=== PATIENT | male | born 1960 | race African-American/Black ===

== ENCOUNTER 2019-08-01 13:07 | Inpatient (IN) | payer OTHER ==
[2019-08-01 14:07] VITALS: BMI 26.4
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
[2019-08-01] MEDS ORDERED: MAGNESIUM CITRATE 300 ML BOTTLE PO PRN (16:17)
[2019-08-01] MEDS ORDERED: MENTHOL/PHENOL 1 EACH UD MM PRN (16:17)
[2019-08-01] MEDS ORDERED: guaiFENesin 200 MG/10 ML 10 ML UNIT-DOSE CUPS PO PRN (16:17)
[2019-08-01] MEDS ORDERED: ACETAMINOPHEN 325 MG TABLET (FP) PO PRN (16:17)
[2019-08-01] MEDS ORDERED: MAGNESIUM HYDROX 2400MG/30ML ORAL SUSPENSION 30 ML CUP PO PRN (16:17)
[2019-08-01] MEDS ORDERED: LOPERAMIDE HCL 2 MG CAPSULE PO PRN (16:17)
[2019-08-01] MEDS ORDERED: P-EPHED 60MG/TRIPROLIDI 2.5MG TABLET PO PRN (16:17)
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
[2019-08-01] MEDS ORDERED: PNEUMOC 13-VAL CONJ-DIP CRM/PF 0.5 ML DISP.SYRIN IM ONE (16:24)
[2019-08-01] MEDS: metFORMIN HCL 500 MG TABLET (FP) PO SCH (18:54)
[2019-08-01] MEDS: MELATONIN 5 MG TABLETS PO PRN (21:09)
[2019-08-01] MEDS: THIAMINE HCL 100 MG TABLET (FP) PO SCH (21:09)
[2019-08-02] MEDS: metFORMIN HCL 500 MG TABLET (FP) PO SCH ×2 (06:48→16:35)
[2019-08-02] MEDS: PRENATAL VITAMINS W/ FOLIC ACID TABLET (FP) PO SCH (09:45)
[2019-08-02 10:04] LABS: EPI CELLS 0.9 /HPF (0-5/HPF); HYALINE CASTS 2 /lpf (0-8); URINE APPEARANCE CLEAR; URINE BACTERIA 0.8 /hpf (NEGATIVE); URINE BILIRUBIN NEGATIVE (NEGATIVE); URINE COLOR YELLOW; URINE GLUCOSE (UA) NEGATIVE (NEGATIVE); URINE KETONE NEGATIVE (NEGATIVE); URINE LEUK ESTERASE 1+ (NEGATIVE); URINE NITRITE NEGATIVE (NEGATIVE); URINE PROTEIN NEGATIVE (NEGATIVE); URINE RBC 1 /hpf (0-4); URINE UROBILINOGEN 0.2 mg/dL (0.2-1.0); URINE WBC 4 /hpf (0-5)
--- NOTE | 2019-08-02 10:26 | PN ---
"[facility] COWS - Scale Resting Pulse: 0= [place] 80 or Below Sweatin=Flushed/Facial Moisture Restless Observation: 0= Sits Still Pupil Size: 0= Normal to Room Light Bone or Joint Aches: 2= Severe Diffuse Aches Runny Nose/ Eye Tearin= Runny Nose/Eyes GI Upset > 30mins: 2= Nausea/Diarrhea Tremor Observation of Outstretched Hands: 2= Slight Tremor Visible Yawning Observation: 0= None Anxiety or Irritability: 1=Feels Anxious/Irritable Goose Flesh Skin: 0=Smooth Skin COWS Score: 11 [facility] Progress Note (SOAP) Subjective: Search Terms: Meggan Prather, 1960 Search Date: 08/02/2019 10:24:12 AM States Searched: [place], [place], [place], [place], [place] This report was requested by: Isa Ellsworth | Reference #: [id number] Patient is requesting suboxone treatment. States he has taken it on the street, but has never taken it as MAT. OIM ARCHITECT confirms that. COWS score was 11. Patient was urine tested by his armed custom protection officer and was positive for opiates although he had take suboxone before his parole appointment. His armed custom protection officer offered him inpatient treatment. Patient reports no ill effects from suboxone. Patient reports a history of heroin use. Objective: P/E General: no apparent distress HEENTM:moinst mucus membranes, MARTHA Neck: supple Lungs: clear Heart; S1 S2 Abd: +BS Neuro: CN 2-12 intact, MSK: full ROM, steady gait 08/02/19 10:33 Vital Signs Period Temp Pulse Resp BP Sys/Manley Pulse Ox Last 24 Hr 97.3 F-97.9 F 69-86 18-18 117-139/63-81 08/02/19 10:38 08/03/19 08:30 URINE DRUG SCREEN RESULTS Drug Screen Negative No Urine Drug Screen Results MAGEN-Cocaine,BUP-Suboxone Assessment: Reported Withdrawal from heroin; requesting suboxone MAT 08/02/19 10:28 08/03/19 08:31 Plan: Start Suboxone MAT at 2mg daily"
[2019-08-02] MEDS: BUPRENORPHINE/NALOXONE 2 MG/0.5 MG FILM PACKET SL SCH (11:00)
[2019-08-02] MEDS ORDERED: FLU VACCINE QUAD 60 MCG/0.5 ML (MDV 19-20) IM ONE (12:00)
[2019-08-02] MEDS ORDERED: PNEUMOCOCCAL 23 VACCINE 0.5 ML VIAL IM ONE (12:00)
[2019-08-02 12:14] LABS: HEMATOCRIT 44.4 % (35.4-49); HEMOGLOBIN 14.8 GM/dL (11.7-16.9); MCH 30.7 pg (25.7-33.7); MCHC 33.3 g/dl (32.0-35.9); MEAN CELL VOLUME 92.1 fl (80-96); MEAN PLT VOLUME 9.5 fl (7.5-11.1); PLATELET COUNT 155 K/MM3 (134-434); RBC 4.82 M/mm3 (4.00-5.60); RDW 13.3 % (11.9-15.9); WHITE BLOOD COUNT 6.3 K/mm3 (4.0-10.0)
[2019-08-02 12:38] LABS: ALBUMIN 3.5 g/dl (3.4-5.0); BILIRUBIN,TOTAL 0.4 mg/dL (0.2-1); CREATININE 0.9 mg/dL (0.55-1.3); TOT PROT 6.7 g/dl (6.4-8.2)
[2019-08-02] MEDS: INSULIN SLIDING SCALE (NOVOLOG) 1 VIAL SQ SCH (16:36)
[2019-08-02] MEDS: THIAMINE HCL 100 MG TABLET (FP) PO SCH (21:28)
[2019-08-02] MEDS: MELATONIN 5 MG TABLETS PO PRN (21:28)
[2019-08-02] MEDS: hydrOXYzine PAMOATE 50 MG CAPSULE (FP) PO PRN (21:29)
[2019-08-02] MEDS: IBUPROFEN 400 MG TABLET (FP) PO PRN (21:43)
[2019-08-03] MEDS: metFORMIN HCL 500 MG TABLET (FP) PO SCH ×2 (06:45→16:39)
[2019-08-03] MEDS: INSULIN SLIDING SCALE (NOVOLOG) 1 VIAL SQ SCH ×2 (06:45→16:37)
[2019-08-03] MEDS: PRENATAL VITAMINS W/ FOLIC ACID TABLET (FP) PO SCH (10:45)
[2019-08-03] MEDS: BUPRENORPHINE/NALOXONE 2 MG/0.5 MG FILM PACKET SL SCH (10:45)
[2019-08-03] MEDS: MAG HYDROX/AL HYDROX/SIMETH 30 ML UNIT-DOSE CUP PO PRN (12:08)
[2019-08-03] MEDS ORDERED: PT OWN MED DRAWER 7, Y5N ONE (12:22)
--- NOTE | 2019-08-03 15:12 | PN ---
S COWS - Scale Resting Pulse: 0= [place] 80 or Below Sweatin=Flushed/Facial Moisture Restless Observation: 0= Sits Still Pupil Size: 0= Normal to Room Light Bone or Joint Aches: 2= Severe Diffuse Aches Runny Nose/ Eye Tearin= Runny Nose/Eyes GI Upset > 30mins: 1= Stomach Cramp Tremor Observation of Outstretched Hands: 2= Slight Tremor Visible Yawning Observation: 0= None Anxiety or Irritability: 1=Feels Anxious/Irritable Goose Flesh Skin: 0=Smooth Skin COWS Score: 10 [facility] Progress Note (SOAP) Subjective: Patient states that he is still feeling withdrawal symptoms. Objective: COWS score 10 08/03/19 15:14 Assessment: Continues to experience withdrawal from heroin. 08/03/19 15:14 Plan: Will increase suboxone to 4mg a day. Advised client to talk to counselor for referral for suboxone MAT upon discharge.
[2019-08-03] MEDS ORDERED: BUPRENORPHINE/NALOXONE 2 MG/0.5 MG FILM PACKET SL ONE (17:30)
[2019-08-03] MEDS: hydrOXYzine PAMOATE 50 MG CAPSULE (FP) PO PRN (21:16)
[2019-08-03] MEDS: MELATONIN 5 MG TABLETS PO PRN (21:17)
[2019-08-03] MEDS: THIAMINE HCL 100 MG TABLET (FP) PO SCH (21:17)
[2019-08-04] MEDS: BUPRENORPHINE/NALOXONE 2 MG/0.5 MG FILM PACKET SL SCH ×2 (05:34→16:47)
[2019-08-04] MEDS: metFORMIN HCL 500 MG TABLET (FP) PO SCH ×2 (06:22→16:46)
[2019-08-04] MEDS: INSULIN SLIDING SCALE (NOVOLOG) 1 VIAL SQ SCH ×2 (06:22→16:46)
[2019-08-04] MEDS: PRENATAL VITAMINS W/ FOLIC ACID TABLET (FP) PO SCH (10:42)
[2019-08-04] MEDS ORDERED: BUPRENORPHINE/NALOXONE 2 MG/0.5 MG FILM PACKET SL SCH (17:30)
[2019-08-04] MEDS: MELATONIN 5 MG TABLETS PO PRN (21:33)
[2019-08-04] MEDS: THIAMINE HCL 100 MG TABLET (FP) PO SCH (21:33)
[2019-08-04] MEDS: hydrOXYzine PAMOATE 50 MG CAPSULE (FP) PO PRN (21:33)
[2019-08-05] MEDS: BUPRENORPHINE/NALOXONE 2 MG/0.5 MG FILM PACKET SL SCH ×2 (05:53→16:39)
[2019-08-05] MEDS: metFORMIN HCL 500 MG TABLET (FP) PO SCH ×2 (05:59→16:26)
[2019-08-05] MEDS: INSULIN SLIDING SCALE (NOVOLOG) 1 VIAL SQ SCH ×2 (06:56→16:26)
[2019-08-05] MEDS: PRENATAL VITAMINS W/ FOLIC ACID TABLET (FP) PO SCH (10:52)
[2019-08-05] MEDS: MAG HYDROX/AL HYDROX/SIMETH 30 ML UNIT-DOSE CUP PO PRN (15:55)
[2019-08-05] MEDS: THIAMINE HCL 100 MG TABLET (FP) PO SCH (21:08)
[2019-08-05] MEDS: hydrOXYzine PAMOATE 50 MG CAPSULE (FP) PO PRN (21:08)
[2019-08-05] MEDS: MELATONIN 5 MG TABLETS PO PRN (21:08)
[2019-08-06] MEDS: metFORMIN HCL 500 MG TABLET (FP) PO SCH ×2 (06:02→16:29)
[2019-08-06] MEDS: BUPRENORPHINE/NALOXONE 2 MG/0.5 MG FILM PACKET SL SCH ×2 (06:02→16:32)
[2019-08-06] MEDS: INSULIN SLIDING SCALE (NOVOLOG) 1 VIAL SQ SCH ×2 (06:10→16:30)
[2019-08-06] MEDS: PRENATAL VITAMINS W/ FOLIC ACID TABLET (FP) PO SCH (10:14)
[2019-08-06] MEDS ORDERED: INSULIN (NOVOLOG) ASPART 100 UNITS/ML 10ML VIAL ONE (16:27)
[2019-08-06] MEDS: MAG HYDROX/AL HYDROX/SIMETH 30 ML UNIT-DOSE CUP PO PRN (18:45)
[2019-08-06] MEDS: MELATONIN 5 MG TABLETS PO PRN (21:30)
[2019-08-06] MEDS: THIAMINE HCL 100 MG TABLET (FP) PO SCH (21:30)
[2019-08-06] MEDS: hydrOXYzine PAMOATE 50 MG CAPSULE (FP) PO PRN (21:31)
[2019-08-07] MEDS: BUPRENORPHINE/NALOXONE 2 MG/0.5 MG FILM PACKET SL SCH ×2 (06:14→17:23)
[2019-08-07] MEDS: metFORMIN HCL 500 MG TABLET (FP) PO SCH ×2 (06:56→17:23)
[2019-08-07] MEDS: INSULIN SLIDING SCALE (NOVOLOG) 1 VIAL SQ SCH ×2 (06:56→17:25)
[2019-08-07] MEDS: PRENATAL VITAMINS W/ FOLIC ACID TABLET (FP) PO SCH (10:56)
[2019-08-07] MEDS: MAG HYDROX/AL HYDROX/SIMETH 30 ML UNIT-DOSE CUP PO PRN (15:52)
[2019-08-07] MEDS ORDERED: INSULIN (NOVOLOG) ASPART 100 UNITS/ML 10ML VIAL ONE (17:20)
[2019-08-07] MEDS: IBUPROFEN 400 MG TABLET (FP) PO PRN (18:38)
[2019-08-07] MEDS: hydrOXYzine PAMOATE 50 MG CAPSULE (FP) PO PRN (21:25)
[2019-08-07] MEDS: MELATONIN 5 MG TABLETS PO PRN (21:25)
[2019-08-07] MEDS: THIAMINE HCL 100 MG TABLET (FP) PO SCH (21:25)
[2019-08-08] MEDS: BUPRENORPHINE/NALOXONE 2 MG/0.5 MG FILM PACKET SL SCH (06:22)
[2019-08-08 07:23] VITALS: BP 117/70; PULSE 75; TEMP 97.9
[2019-08-08] MEDS: metFORMIN HCL 500 MG TABLET (FP) PO SCH (07:28)
[2019-08-08] MEDS: INSULIN SLIDING SCALE (NOVOLOG) 1 VIAL SQ SCH (07:29)
[2019-08-08] MEDS: PRENATAL VITAMINS W/ FOLIC ACID TABLET (FP) PO SCH (11:41)
[2019-08-08] MEDS ORDERED: BACITRACIN 15 GM TUBE TOPICAL OINTMENT TP SCH (14:00)
== END 2019-08-08 13:05 | disposition left against medical advice (07) | DRG 894 ==
LOC: YASAS 13:07 → Y3W 16:14
PROVIDERS: ADMIT Neuromusculoskeletal Medicine & OMM; ATTEND Neuromusculoskeletal Medicine & OMM
PROC: HZ42ZZZ Group Counseling for Substance Abuse Treatment, Cognitive-Behavioral (ICD-10-PCS; principal; 2019-08-01)
DX: F11.23 Opioid dependence with withdrawal (principal); F14.20 Cocaine dependence, uncomplicated; F10.20 Alcohol dependence, uncomplicated; F17.210 Nicotine dependence, cigarettes, uncomplicated; E11.9 Type 2 diabetes mellitus without complications; Z85.46 Personal history of malignant neoplasm of prostate; Z97.0 Presence of artificial eye; Z79.84 Long term (current) use of oral hypoglycemic drugs
CPT/HCPCS: 36415; 80053; 81003; 82962; 85027; 86593; 90732; G0008; G0009; Q2036

== ENCOUNTER 2019-08-11 14:34 | Inpatient (IN) | payer OTHER ==
[2019-08-11 17:09] VITALS: BMI 26.4
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
[2019-08-11] MEDS ORDERED: P-EPHED 60MG/TRIPROLIDI 2.5MG TABLET PO PRN (22:10)
[2019-08-11] MEDS ORDERED: MENTHOL/PHENOL 1 EACH UD MM PRN (22:10)
[2019-08-11] MEDS ORDERED: LOPERAMIDE HCL 2 MG CAPSULE PO PRN (22:10)
[2019-08-11] MEDS ORDERED: IBUPROFEN 400 MG TABLET (FP) PO PRN (22:10)
[2019-08-11] MEDS ORDERED: ACETAMINOPHEN 325 MG TABLET (FP) PO PRN (22:10)
[2019-08-11] MEDS ORDERED: MAGNESIUM CITRATE 300 ML BOTTLE PO PRN (22:10)
[2019-08-11] MEDS ORDERED: guaiFENesin 200 MG/10 ML 10 ML UNIT-DOSE CUPS PO PRN (22:10)
[2019-08-11] MEDS ORDERED: TUBERCULIN PPD 5 TU/0.1ML VIAL ID ONE (23:11)
[2019-08-12] MEDS: BUPRENORPHINE/NALOXONE 2 MG/0.5 MG FILM PACKET SL SCH ×2 (06:51→07:18)
[2019-08-12] MEDS: metFORMIN HCL 500 MG TABLET (FP) PO SCH ×2 (07:08→17:09)
[2019-08-12] MEDS: INSULIN SLIDING SCALE (NOVOLOG) 1 VIAL SQ SCH ×4 (07:09→21:38)
[2019-08-12] MEDS: PANTOPRAZOLE 20 MG TABLET (FP) PO SCH (10:01)
[2019-08-12] MEDS: PRENATAL VITAMINS W/ FOLIC ACID TABLET (FP) PO SCH (10:01)
[2019-08-12] MEDS: NICOTINE 14 MG/24 HOURS TOPICAL PATCH TD SCH (10:01)
[2019-08-12] MEDS: DOCUSATE SODIUM 100 MG CAPSULE (FP) PO SCH ×2 (10:01→21:41)
[2019-08-12] MEDS: NICOTINE POLACRILEX 2 MG GUM BUC PRN ×3 (10:02→21:43)
[2019-08-12 11:17] LABS: EPI CELLS 1.1 /HPF (0-5/HPF); HYALINE CASTS 3 /lpf (0-8); PH,URINE 6.5 (5.0-8.0); URINE APPEARANCE CLEAR; URINE BACTERIA 0.7 /hpf (NEGATIVE); URINE BILIRUBIN NEGATIVE (NEGATIVE); URINE COLOR YELLOW; URINE GLUCOSE (UA) NEGATIVE (NEGATIVE); URINE KETONE 1+ (NEGATIVE); URINE LEUK ESTERASE TRACE (NEGATIVE); URINE NITRITE NEGATIVE (NEGATIVE); URINE PROTEIN NEGATIVE (NEGATIVE); URINE RBC 2 /hpf (0-4); URINE WBC 5 /hpf (0-5)
--- NOTE | 2019-08-12 11:31 | EKG ---
Test Reason : Blood Pressure : / mmHG Vent. Rate : 058 BPM Atrial Rate : 058 BPM P-R Int : 172 ms QRS Dur : 078 ms QT Int : 414 ms P-R-T Axes : 070 056 035 degrees QTc Int : 406 ms SINUS BRADYCARDIA CANNOT RULE OUT ANTERIOR INFARCT , AGE UNDETERMINED ABNORMAL ECG NO PREVIOUS ECGS AVAILABLE Confirmed by MARTY BRUNO MD ([id number]) on 08/12/2019 11:31:17 AM Referred By: Confirmed By:MARTY BRUNO MD
[2019-08-12 14:58] LABS: HEMATOCRIT 43.4 % (35.4-49); HEMOGLOBIN 14.9 GM/dL (11.7-16.9); MCH 31.2 pg (25.7-33.7); MCHC 34.2 g/dl (32.0-35.9); MEAN CELL VOLUME 91.2 fl (80-96); MEAN PLT VOLUME 10.1 fl (7.5-11.1); PLATELET COUNT 161 K/MM3 (134-434); RBC 4.76 M/mm3 (4.00-5.60); RDW 12.5 % (11.9-15.9); WHITE BLOOD COUNT 6.2 K/mm3 (4.0-10.0)
[2019-08-12 15:14] LABS: ALBUMIN 3.6 g/dl (3.4-5.0); BILIRUBIN,TOTAL 0.5 mg/dL (0.2-1); BLOOD UREA NITROGEN 11.9 mg/dL (7-18); CALCIUM 9.1 mg/dL (8.5-10.1); CREATININE 0.9 mg/dL (0.55-1.3); POTASSIUM 4.1 mmol/L (3.5-5.1); TOT PROT 6.8 g/dl (6.4-8.2)
[2019-08-12] MEDS: BUPRENORPHINE/NALOXONE 8 MG/2 MG FILM PACKET SL SCH (17:04)
[2019-08-12] MEDS: hydrOXYzine PAMOATE 50 MG CAPSULE (FP) PO PRN (21:41)
[2019-08-12] MEDS: MELATONIN 5 MG TABLETS PO PRN (21:41)
[2019-08-12] MEDS: THIAMINE HCL 100 MG TABLET (FP) PO SCH (21:41)
[2019-08-12] MEDS ORDERED: BUPRENORPHINE/NALOXONE 4 MG/1 MG FILM PACKET SL SCH (22:00)
[2019-08-13] MEDS: BUPRENORPHINE/NALOXONE 8 MG/2 MG FILM PACKET SL SCH ×2 (06:14→17:04)
[2019-08-13] MEDS: NICOTINE POLACRILEX 2 MG GUM BUC PRN ×4 (06:52→18:57)
[2019-08-13] MEDS: metFORMIN HCL 500 MG TABLET (FP) PO SCH ×2 (07:01→17:04)
[2019-08-13] MEDS: INSULIN SLIDING SCALE (NOVOLOG) 1 VIAL SQ SCH ×4 (07:01→21:49)
[2019-08-13] MEDS: PRENATAL VITAMINS W/ FOLIC ACID TABLET (FP) PO SCH (09:43)
[2019-08-13] MEDS: DOCUSATE SODIUM 100 MG CAPSULE (FP) PO SCH ×2 (09:43→21:49)
[2019-08-13] MEDS: PANTOPRAZOLE 20 MG TABLET (FP) PO SCH (09:43)
[2019-08-13] MEDS: NICOTINE 14 MG/24 HOURS TOPICAL PATCH TD SCH (09:44)
--- NOTE | 2019-08-13 10:54 | EKG ---
Test Reason : Blood Pressure : / mmHG Vent. Rate : 061 BPM Atrial Rate : 061 BPM P-R Int : 172 ms QRS Dur : 080 ms QT Int : 400 ms P-R-T Axes : 063 057 032 degrees QTc Int : 402 ms NORMAL SINUS RHYTHM SEPTAL INFARCT (CITED ON OR BEFORE 11-AUG-2019) ABNORMAL ECG WHEN COMPARED WITH ECG OF 11-AUG-2019 23:30, NO SIGNIFICANT CHANGE WAS FOUND Confirmed by KIANA PATTEN, MARTY ([id number]) on 08/13/2019 10:54:21 AM Referred By: Confirmed By:MARTY BRUNO MD
[2019-08-13] MEDS: MELATONIN 5 MG TABLETS PO PRN (21:49)
[2019-08-13] MEDS: THIAMINE HCL 100 MG TABLET (FP) PO SCH (21:49)
[2019-08-13] MEDS: hydrOXYzine PAMOATE 50 MG CAPSULE (FP) PO PRN (21:49)
[2019-08-14] MEDS: BUPRENORPHINE/NALOXONE 8 MG/2 MG FILM PACKET SL SCH ×2 (06:37→17:35)
[2019-08-14] MEDS: metFORMIN HCL 500 MG TABLET (FP) PO SCH ×2 (06:40→16:35)
[2019-08-14] MEDS: INSULIN SLIDING SCALE (NOVOLOG) 1 VIAL SQ SCH ×4 (06:40→21:12)
[2019-08-14] MEDS: NICOTINE POLACRILEX 2 MG GUM BUC PRN ×6 (06:41→22:08)
[2019-08-14] MEDS: NICOTINE 14 MG/24 HOURS TOPICAL PATCH TD SCH (10:48)
[2019-08-14] MEDS: PRENATAL VITAMINS W/ FOLIC ACID TABLET (FP) PO SCH (10:48)
[2019-08-14] MEDS: PANTOPRAZOLE 20 MG TABLET (FP) PO SCH (10:48)
[2019-08-14] MEDS: DOCUSATE SODIUM 100 MG CAPSULE (FP) PO SCH ×2 (10:48→21:10)
[2019-08-14] MEDS: MAG HYDROX/AL HYDROX/SIMETH 30 ML UNIT-DOSE CUP PO PRN (16:37)
[2019-08-14] MEDS: THIAMINE HCL 100 MG TABLET (FP) PO SCH (21:09)
[2019-08-14] MEDS: MELATONIN 5 MG TABLETS PO PRN (21:09)
[2019-08-14] MEDS: hydrOXYzine PAMOATE 50 MG CAPSULE (FP) PO PRN (21:10)
[2019-08-15] MEDS: BUPRENORPHINE/NALOXONE 8 MG/2 MG FILM PACKET SL SCH ×2 (06:35→17:01)
[2019-08-15] MEDS: INSULIN SLIDING SCALE (NOVOLOG) 1 VIAL SQ SCH ×4 (06:35→21:42)
[2019-08-15] MEDS: metFORMIN HCL 500 MG TABLET (FP) PO SCH ×2 (06:35→16:31)
[2019-08-15] MEDS: DOCUSATE SODIUM 100 MG CAPSULE (FP) PO SCH ×2 (09:57→21:42)
[2019-08-15] MEDS: PANTOPRAZOLE 20 MG TABLET (FP) PO SCH (09:57)
[2019-08-15] MEDS: NICOTINE 14 MG/24 HOURS TOPICAL PATCH TD SCH (09:57)
[2019-08-15] MEDS: PRENATAL VITAMINS W/ FOLIC ACID TABLET (FP) PO SCH (09:57)
[2019-08-15] MEDS: NICOTINE POLACRILEX 2 MG GUM BUC PRN ×4 (09:58→16:58)
[2019-08-15] MEDS: MAG HYDROX/AL HYDROX/SIMETH 30 ML UNIT-DOSE CUP PO PRN (13:45)
[2019-08-15] MEDS: THIAMINE HCL 100 MG TABLET (FP) PO SCH (21:42)
[2019-08-15] MEDS: MELATONIN 5 MG TABLETS PO PRN (21:42)
[2019-08-15] MEDS: hydrOXYzine PAMOATE 50 MG CAPSULE (FP) PO PRN (21:42)
[2019-08-16] MEDS: BUPRENORPHINE/NALOXONE 8 MG/2 MG FILM PACKET SL SCH ×2 (06:19→17:06)
[2019-08-16] MEDS: metFORMIN HCL 500 MG TABLET (FP) PO SCH ×2 (07:02→16:33)
[2019-08-16] MEDS: INSULIN SLIDING SCALE (NOVOLOG) 1 VIAL SQ SCH (07:02)
[2019-08-16] MEDS: DOCUSATE SODIUM 100 MG CAPSULE (FP) PO SCH ×2 (09:22→21:19)
[2019-08-16] MEDS: NICOTINE POLACRILEX 2 MG GUM BUC PRN ×3 (09:22→22:01)
[2019-08-16] MEDS: PRENATAL VITAMINS W/ FOLIC ACID TABLET (FP) PO SCH (09:22)
[2019-08-16] MEDS: NICOTINE 14 MG/24 HOURS TOPICAL PATCH TD SCH (09:22)
[2019-08-16] MEDS: PANTOPRAZOLE 20 MG TABLET (FP) PO SCH (09:22)
[2019-08-16] MEDS: MAG HYDROX/AL HYDROX/SIMETH 30 ML UNIT-DOSE CUP PO PRN ×2 (13:34→19:07)
[2019-08-16] MEDS: MELATONIN 5 MG TABLETS PO PRN (21:19)
[2019-08-16] MEDS: THIAMINE HCL 100 MG TABLET (FP) PO SCH (21:19)
[2019-08-16] MEDS: hydrOXYzine PAMOATE 50 MG CAPSULE (FP) PO PRN (21:20)
[2019-08-17] MEDS ORDERED: BISMUTH SUBSALICYLATE 524 MG/30 ML UD PO ONE (00:02)
--- NOTE | 2019-08-17 00:05 | PN ---
S Progress Note Note: Patient complained of heart burn Vital Signs Temperature 97.8 F 08/16/19 07:06 Pulse Rate 59 L 08/16/19 07:06 Respiratory Rate 18 08/16/19 07:06 Blood Pressure 117/72 08/16/19 07:06 O2 Sat by Pulse Oximetry (%) Action: Bismuth Subsalicylate (Pepto Bismol) 524mg oral ordered
[2019-08-17] MEDS: INSULIN SLIDING SCALE (NOVOLOG) 1 VIAL SQ SCH ×2 (06:33→07:00)
[2019-08-17] MEDS: BUPRENORPHINE/NALOXONE 8 MG/2 MG FILM PACKET SL SCH ×2 (06:33→17:41)
[2019-08-17] MEDS: NICOTINE POLACRILEX 2 MG GUM BUC PRN ×5 (06:39→21:46)
[2019-08-17] MEDS: metFORMIN HCL 500 MG TABLET (FP) PO SCH ×2 (06:59→17:41)
[2019-08-17] MEDS: PANTOPRAZOLE 20 MG TABLET (FP) PO SCH (10:21)
[2019-08-17] MEDS: NICOTINE 14 MG/24 HOURS TOPICAL PATCH TD SCH (10:21)
[2019-08-17] MEDS: DOCUSATE SODIUM 100 MG CAPSULE (FP) PO SCH ×2 (10:21→21:43)
[2019-08-17] MEDS: PRENATAL VITAMINS W/ FOLIC ACID TABLET (FP) PO SCH (10:21)
[2019-08-17] MEDS ORDERED: BISMUTH SUBSALICYLATE 524 MG/30 ML UD PO PRN (13:05)
[2019-08-17] MEDS: MAG HYDROX/AL HYDROX/SIMETH 30 ML UNIT-DOSE CUP PO PRN (14:17)
[2019-08-17] MEDS: SIMETHICONE 80 MG TAB.CHEW (FP) PO PRN ×2 (15:39→21:44)
[2019-08-17] MEDS: THIAMINE HCL 100 MG TABLET (FP) PO SCH (21:43)
[2019-08-17] MEDS: MELATONIN 5 MG TABLETS PO PRN (21:43)
[2019-08-17] MEDS ORDERED: PT OWN MED DRAWER 7, Y5N ONE (21:44)
[2019-08-17] MEDS: hydrOXYzine PAMOATE 50 MG CAPSULE (FP) PO PRN (21:45)
[2019-08-18] MEDS: BUPRENORPHINE/NALOXONE 8 MG/2 MG FILM PACKET SL SCH ×2 (06:15→17:25)
[2019-08-18] MEDS: INSULIN SLIDING SCALE (NOVOLOG) 1 VIAL SQ SCH (06:38)
[2019-08-18] MEDS: metFORMIN HCL 500 MG TABLET (FP) PO SCH ×2 (06:38→17:01)
[2019-08-18] MEDS: NICOTINE POLACRILEX 2 MG GUM BUC PRN ×3 (07:29→21:23)
[2019-08-18] MEDS: PRENATAL VITAMINS W/ FOLIC ACID TABLET (FP) PO SCH (09:57)
[2019-08-18] MEDS: NICOTINE 14 MG/24 HOURS TOPICAL PATCH TD SCH (09:57)
[2019-08-18] MEDS: DOCUSATE SODIUM 100 MG CAPSULE (FP) PO SCH ×2 (09:57→21:22)
[2019-08-18] MEDS: SIMETHICONE 80 MG TAB.CHEW (FP) PO PRN ×2 (09:57→21:23)
[2019-08-18] MEDS: PANTOPRAZOLE 20 MG TABLET (FP) PO SCH (10:00)
[2019-08-18] MEDS: THIAMINE HCL 100 MG TABLET (FP) PO SCH (21:21)
[2019-08-18] MEDS: MELATONIN 5 MG TABLETS PO PRN (21:22)
[2019-08-18] MEDS: hydrOXYzine PAMOATE 50 MG CAPSULE (FP) PO PRN (21:22)
[2019-08-19] MEDS: BUPRENORPHINE/NALOXONE 8 MG/2 MG FILM PACKET SL SCH ×2 (06:46→17:05)
[2019-08-19] MEDS: INSULIN SLIDING SCALE (NOVOLOG) 1 VIAL SQ SCH (06:47)
[2019-08-19] MEDS: metFORMIN HCL 500 MG TABLET (FP) PO SCH ×2 (06:47→17:04)
[2019-08-19] MEDS: PANTOPRAZOLE 20 MG TABLET (FP) PO SCH (10:35)
[2019-08-19] MEDS: NICOTINE 14 MG/24 HOURS TOPICAL PATCH TD SCH (10:35)
[2019-08-19] MEDS: DOCUSATE SODIUM 100 MG CAPSULE (FP) PO SCH ×2 (10:35→21:36)
[2019-08-19] MEDS: PRENATAL VITAMINS W/ FOLIC ACID TABLET (FP) PO SCH (10:35)
[2019-08-19] MEDS: MAGNESIUM HYDROX 2400MG/30ML ORAL SUSPENSION 30 ML CUP PO PRN (13:04)
[2019-08-19] MEDS: NICOTINE POLACRILEX 2 MG GUM BUC PRN (13:05)
[2019-08-19] MEDS: SIMETHICONE 80 MG TAB.CHEW (FP) PO PRN ×2 (13:05→21:37)
[2019-08-19] MEDS: MELATONIN 5 MG TABLETS PO PRN (21:36)
[2019-08-19] MEDS: THIAMINE HCL 100 MG TABLET (FP) PO SCH (21:36)
[2019-08-19] MEDS: hydrOXYzine PAMOATE 50 MG CAPSULE (FP) PO PRN (21:37)
[2019-08-20] MEDS: BUPRENORPHINE/NALOXONE 8 MG/2 MG FILM PACKET SL SCH ×2 (06:43→17:24)
[2019-08-20] MEDS: INSULIN SLIDING SCALE (NOVOLOG) 1 VIAL SQ SCH (06:45)
[2019-08-20] MEDS: metFORMIN HCL 500 MG TABLET (FP) PO SCH ×2 (06:45→16:41)
[2019-08-20] MEDS: PANTOPRAZOLE 20 MG TABLET (FP) PO SCH (10:19)
[2019-08-20] MEDS: PRENATAL VITAMINS W/ FOLIC ACID TABLET (FP) PO SCH (10:19)
[2019-08-20] MEDS: NICOTINE POLACRILEX 2 MG GUM BUC PRN ×3 (10:19→21:48)
[2019-08-20] MEDS: DOCUSATE SODIUM 100 MG CAPSULE (FP) PO SCH ×2 (10:19→21:34)
[2019-08-20] MEDS: NICOTINE 14 MG/24 HOURS TOPICAL PATCH TD SCH (10:19)
[2019-08-20] MEDS: hydrOXYzine PAMOATE 50 MG CAPSULE (FP) PO PRN (21:34)
[2019-08-20] MEDS: MELATONIN 5 MG TABLETS PO PRN (21:34)
[2019-08-20] MEDS: THIAMINE HCL 100 MG TABLET (FP) PO SCH (21:34)
[2019-08-20] MEDS: SIMETHICONE 80 MG TAB.CHEW (FP) PO PRN (21:47)
[2019-08-21] MEDS: BUPRENORPHINE/NALOXONE 8 MG/2 MG FILM PACKET SL SCH ×2 (06:34→17:03)
[2019-08-21] MEDS: NICOTINE POLACRILEX 2 MG GUM BUC PRN ×4 (06:37→19:43)
[2019-08-21] MEDS: metFORMIN HCL 500 MG TABLET (FP) PO SCH ×2 (06:48→17:03)
[2019-08-21] MEDS: INSULIN SLIDING SCALE (NOVOLOG) 1 VIAL SQ SCH (06:48)
[2019-08-21] MEDS: PRENATAL VITAMINS W/ FOLIC ACID TABLET (FP) PO SCH (10:28)
[2019-08-21] MEDS: NICOTINE 14 MG/24 HOURS TOPICAL PATCH TD SCH (10:29)
[2019-08-21] MEDS: PANTOPRAZOLE 20 MG TABLET (FP) PO SCH (10:29)
[2019-08-21] MEDS: DOCUSATE SODIUM 100 MG CAPSULE (FP) PO SCH ×2 (10:29→21:48)
[2019-08-21] MEDS: ARTIFICIAL TEARS (POLYVINYL ALCOHOL) OPTH DROPS OU PRN (17:03)
[2019-08-21] MEDS: MAG HYDROX/AL HYDROX/SIMETH 30 ML UNIT-DOSE CUP PO PRN (19:43)
[2019-08-21] MEDS: hydrOXYzine PAMOATE 50 MG CAPSULE (FP) PO PRN (21:48)
[2019-08-21] MEDS: SIMETHICONE 80 MG TAB.CHEW (FP) PO PRN (21:48)
[2019-08-21] MEDS: THIAMINE HCL 100 MG TABLET (FP) PO SCH (21:48)
[2019-08-21] MEDS: MELATONIN 5 MG TABLETS PO PRN (21:49)
[2019-08-22] MEDS: BUPRENORPHINE/NALOXONE 8 MG/2 MG FILM PACKET SL SCH ×2 (06:06→17:05)
[2019-08-22] MEDS: NICOTINE POLACRILEX 2 MG GUM BUC PRN ×5 (07:12→21:24)
[2019-08-22] MEDS: INSULIN SLIDING SCALE (NOVOLOG) 1 VIAL SQ SCH (07:15)
[2019-08-22] MEDS: metFORMIN HCL 500 MG TABLET (FP) PO SCH ×2 (07:15→17:04)
[2019-08-22] MEDS: PRENATAL VITAMINS W/ FOLIC ACID TABLET (FP) PO SCH (10:01)
[2019-08-22] MEDS: DOCUSATE SODIUM 100 MG CAPSULE (FP) PO SCH ×2 (10:01→21:21)
[2019-08-22] MEDS: ARTIFICIAL TEARS (POLYVINYL ALCOHOL) OPTH DROPS OU PRN (10:01)
[2019-08-22] MEDS: PANTOPRAZOLE 20 MG TABLET (FP) PO SCH (10:01)
[2019-08-22] MEDS: NICOTINE 14 MG/24 HOURS TOPICAL PATCH TD SCH (10:02)
[2019-08-22] MEDS: MAGNESIUM HYDROX 2400MG/30ML ORAL SUSPENSION 30 ML CUP PO PRN (10:03)
[2019-08-22] MEDS: THIAMINE HCL 100 MG TABLET (FP) PO SCH (21:21)
[2019-08-22] MEDS: MELATONIN 5 MG TABLETS PO PRN (21:21)
[2019-08-22] MEDS: SIMETHICONE 80 MG TAB.CHEW (FP) PO PRN (21:22)
[2019-08-22] MEDS: hydrOXYzine PAMOATE 50 MG CAPSULE (FP) PO PRN (21:22)
[2019-08-23] MEDS: BUPRENORPHINE/NALOXONE 8 MG/2 MG FILM PACKET SL SCH ×2 (06:35→17:12)
[2019-08-23] MEDS: INSULIN SLIDING SCALE (NOVOLOG) 1 VIAL SQ SCH (06:47)
[2019-08-23] MEDS: metFORMIN HCL 500 MG TABLET (FP) PO SCH ×2 (06:47→17:11)
[2019-08-23] MEDS: NICOTINE POLACRILEX 2 MG GUM BUC PRN ×6 (06:52→22:03)
[2019-08-23] MEDS: PANTOPRAZOLE 20 MG TABLET (FP) PO SCH (09:45)
[2019-08-23] MEDS: DOCUSATE SODIUM 100 MG CAPSULE (FP) PO SCH ×2 (09:45→22:03)
[2019-08-23] MEDS: NICOTINE 14 MG/24 HOURS TOPICAL PATCH TD SCH (09:45)
[2019-08-23] MEDS: PRENATAL VITAMINS W/ FOLIC ACID TABLET (FP) PO SCH (09:45)
[2019-08-23] MEDS ORDERED: PT OWN MED DRAWER 7, Y5N ONE ×2 (16:53→22:09)
[2019-08-23] MEDS: ARTIFICIAL TEARS (POLYVINYL ALCOHOL) OPTH DROPS OU PRN ×2 (17:12→22:02)
[2019-08-23] MEDS: THIAMINE HCL 100 MG TABLET (FP) PO SCH (22:02)
[2019-08-23] MEDS: MELATONIN 5 MG TABLETS PO PRN (22:03)
[2019-08-23] MEDS: hydrOXYzine PAMOATE 50 MG CAPSULE (FP) PO PRN (22:05)
[2019-08-23] MEDS: SIMETHICONE 80 MG TAB.CHEW (FP) PO PRN (22:09)
[2019-08-24] MEDS: BUPRENORPHINE/NALOXONE 8 MG/2 MG FILM PACKET SL SCH ×2 (06:28→17:44)
[2019-08-24] MEDS: metFORMIN HCL 500 MG TABLET (FP) PO SCH ×2 (06:30→16:20)
[2019-08-24] MEDS: INSULIN SLIDING SCALE (NOVOLOG) 1 VIAL SQ SCH (06:31)
[2019-08-24] MEDS: DOCUSATE SODIUM 100 MG CAPSULE (FP) PO SCH ×2 (09:49→21:38)
[2019-08-24] MEDS: PRENATAL VITAMINS W/ FOLIC ACID TABLET (FP) PO SCH (09:49)
[2019-08-24] MEDS: NICOTINE POLACRILEX 2 MG GUM BUC PRN ×4 (09:49→21:40)
[2019-08-24] MEDS: NICOTINE 14 MG/24 HOURS TOPICAL PATCH TD SCH (09:49)
[2019-08-24] MEDS: PANTOPRAZOLE 20 MG TABLET (FP) PO SCH (09:49)
[2019-08-24] MEDS: ARTIFICIAL TEARS (POLYVINYL ALCOHOL) OPTH DROPS OU PRN ×2 (09:51→14:49)
[2019-08-24] MEDS: THIAMINE HCL 100 MG TABLET (FP) PO SCH (21:38)
[2019-08-24] MEDS: MELATONIN 5 MG TABLETS PO PRN (21:38)
[2019-08-24] MEDS: hydrOXYzine PAMOATE 50 MG CAPSULE (FP) PO PRN (21:38)
[2019-08-25] MEDS: BUPRENORPHINE/NALOXONE 8 MG/2 MG FILM PACKET SL SCH ×2 (06:20→17:03)
[2019-08-25] MEDS: metFORMIN HCL 500 MG TABLET (FP) PO SCH ×2 (06:21→17:03)
[2019-08-25] MEDS: INSULIN SLIDING SCALE (NOVOLOG) 1 VIAL SQ SCH (06:21)
[2019-08-25] MEDS: PANTOPRAZOLE 20 MG TABLET (FP) PO SCH (10:28)
[2019-08-25] MEDS: DOCUSATE SODIUM 100 MG CAPSULE (FP) PO SCH ×2 (10:28→21:32)
[2019-08-25] MEDS: NICOTINE 14 MG/24 HOURS TOPICAL PATCH TD SCH (10:28)
[2019-08-25] MEDS: PRENATAL VITAMINS W/ FOLIC ACID TABLET (FP) PO SCH (10:29)
[2019-08-25] MEDS: NICOTINE POLACRILEX 2 MG GUM BUC PRN ×3 (10:30→21:33)
[2019-08-25] MEDS: MELATONIN 5 MG TABLETS PO PRN (21:32)
[2019-08-25] MEDS: THIAMINE HCL 100 MG TABLET (FP) PO SCH (21:32)
[2019-08-25] MEDS: hydrOXYzine PAMOATE 50 MG CAPSULE (FP) PO PRN (21:33)
[2019-08-26] MEDS ORDERED: PT OWN MED DRAWER 7, Y5N ONE ×2 (04:17→19:03)
[2019-08-26] MEDS: BUPRENORPHINE/NALOXONE 8 MG/2 MG FILM PACKET SL SCH ×2 (06:42→17:41)
[2019-08-26] MEDS: NICOTINE POLACRILEX 2 MG GUM BUC PRN ×5 (06:44→21:15)
[2019-08-26] MEDS: INSULIN SLIDING SCALE (NOVOLOG) 1 VIAL SQ SCH (07:03)
[2019-08-26] MEDS: metFORMIN HCL 500 MG TABLET (FP) PO SCH ×2 (07:03→17:41)
[2019-08-26] MEDS: ARTIFICIAL TEARS (POLYVINYL ALCOHOL) OPTH DROPS OU PRN ×4 (07:59→21:13)
[2019-08-26] MEDS: PANTOPRAZOLE 20 MG TABLET (FP) PO SCH (10:07)
[2019-08-26] MEDS: DOCUSATE SODIUM 100 MG CAPSULE (FP) PO SCH ×2 (10:07→21:13)
[2019-08-26] MEDS: PRENATAL VITAMINS W/ FOLIC ACID TABLET (FP) PO SCH (10:07)
[2019-08-26] MEDS: NICOTINE 14 MG/24 HOURS TOPICAL PATCH TD SCH (10:07)
[2019-08-26] MEDS: MAGNESIUM HYDROX 2400MG/30ML ORAL SUSPENSION 30 ML CUP PO PRN (10:08)
[2019-08-26] MEDS: MAG HYDROX/AL HYDROX/SIMETH 30 ML UNIT-DOSE CUP PO PRN (17:43)
[2019-08-26] MEDS: MELATONIN 5 MG TABLETS PO PRN (21:13)
[2019-08-26] MEDS: THIAMINE HCL 100 MG TABLET (FP) PO SCH (21:13)
[2019-08-26] MEDS: SIMETHICONE 80 MG TAB.CHEW (FP) PO PRN (21:13)
[2019-08-26] MEDS: hydrOXYzine PAMOATE 50 MG CAPSULE (FP) PO PRN (21:14)
[2019-08-27] MEDS: BUPRENORPHINE/NALOXONE 8 MG/2 MG FILM PACKET SL SCH ×2 (06:33→17:04)
[2019-08-27] MEDS: INSULIN SLIDING SCALE (NOVOLOG) 1 VIAL SQ SCH (07:01)
[2019-08-27] MEDS: metFORMIN HCL 500 MG TABLET (FP) PO SCH ×2 (07:01→17:03)
[2019-08-27] MEDS: ARTIFICIAL TEARS (POLYVINYL ALCOHOL) OPTH DROPS OU PRN ×3 (07:20→17:04)
[2019-08-27] MEDS: NICOTINE POLACRILEX 2 MG GUM BUC PRN ×4 (07:21→21:29)
[2019-08-27] MEDS: DOCUSATE SODIUM 100 MG CAPSULE (FP) PO SCH ×2 (10:32→21:28)
[2019-08-27] MEDS: PANTOPRAZOLE 20 MG TABLET (FP) PO SCH (10:32)
[2019-08-27] MEDS: PRENATAL VITAMINS W/ FOLIC ACID TABLET (FP) PO SCH (10:32)
[2019-08-27] MEDS: NICOTINE 14 MG/24 HOURS TOPICAL PATCH TD SCH (10:33)
[2019-08-27] MEDS: SIMETHICONE 80 MG TAB.CHEW (FP) PO PRN (21:28)
[2019-08-27] MEDS: hydrOXYzine PAMOATE 50 MG CAPSULE (FP) PO PRN (21:29)
[2019-08-27] MEDS: THIAMINE HCL 100 MG TABLET (FP) PO SCH (21:29)
[2019-08-27] MEDS: MELATONIN 5 MG TABLETS PO PRN (21:30)
[2019-08-28] MEDS: BUPRENORPHINE/NALOXONE 8 MG/2 MG FILM PACKET SL SCH ×2 (07:19→17:02)
[2019-08-28] MEDS: metFORMIN HCL 500 MG TABLET (FP) PO SCH ×2 (07:20→17:03)
[2019-08-28] MEDS: ARTIFICIAL TEARS (POLYVINYL ALCOHOL) OPTH DROPS OU PRN (07:21)
[2019-08-28] MEDS: INSULIN SLIDING SCALE (NOVOLOG) 1 VIAL SQ SCH (07:50)
[2019-08-28] MEDS: DOCUSATE SODIUM 100 MG CAPSULE (FP) PO SCH ×2 (09:11→21:21)
[2019-08-28] MEDS: PANTOPRAZOLE 20 MG TABLET (FP) PO SCH (09:11)
[2019-08-28] MEDS: PRENATAL VITAMINS W/ FOLIC ACID TABLET (FP) PO SCH (09:11)
[2019-08-28] MEDS: NICOTINE 14 MG/24 HOURS TOPICAL PATCH TD SCH (09:11)
[2019-08-28] MEDS: NICOTINE POLACRILEX 2 MG GUM BUC PRN ×4 (09:20→22:39)
[2019-08-28] MEDS: MAGNESIUM HYDROX 2400MG/30ML ORAL SUSPENSION 30 ML CUP PO PRN (09:20)
--- NOTE | 2019-08-28 15:07 | PN ---
[facility] Progress Note Note: Patient to be discharged from rehab tomorrow 08/29/19 at 7am. Patient received services for ETOH/Opiod dependence and started on Suboxone MAT. During admission , patient attended group meetings and 1:1 sessions with counseling. Patient states he accomplished all rehab goals, able to identify triggers and use positive coping mechanisms. Patient is medically stable at this time and denies SI/HI. Aftercare arranged for VIP and appointment scheduled for 08/29/19 at 1pm. Vital Signs Temperature 97.6 F 08/28/19 07:09 Pulse Rate 60 08/28/19 07:09 Respiratory Rate 18 08/28/19 07:09 Blood Pressure 134/66 08/28/19 07:09 O2 Sat by Pulse Oximetry (%) Laboratory Tests 08/12/19 08/12/19 08/12/19 06:51 08:30 10:10 WBC 6.2 RBC 4.76 Hgb 14.9 Hct 43.4 MCV 91.2 MCH 31.2 MCHC 34.2 RDW 12.5 Plt Count 161 MPV 10.1 Sodium Potassium Chloride Carbon Dioxide Anion Gap BUN Creatinine Est GFR (CKD-EPI)AfAm Est GFR (CKD-EPI)NonAf POC Glucometer 97 Random Glucose Calcium Total Bilirubin AST ALT Alkaline Phosphatase Total Protein Albumin Urine Color Yellow Urine Appearance Clear Urine pH 6.5 Ur Specific [place] 1.018 Urine Protein Negative Urine Glucose (UA) Negative Urine Ketones 1+ H Urine Blood Negative Urine Nitrite Negative Urine Bilirubin Negative Urine Urobilinogen 1.0 Ur Leukocyte Esterase Trace Urine WBC (Auto) 5 Urine RBC (Auto) 2 Urine Casts (Auto) 3 U Epithel Cells (Auto) 1.1 Urine Bacteria (Auto) 0.7 RPR Titer 08/12/19 08/12/19 08/12/19 10:10 10:10 12:05 WBC RBC Hgb Hct MCV MCH MCHC RDW Plt Count MPV Sodium 138 Potassium 4.1 Chloride 105 Carbon Dioxide 29 Anion Gap 4 L BUN 11.9 Creatinine 0.9 Est GFR (CKD-EPI)AfAm 109.50 Est GFR (CKD-EPI)NonAf 94.48 POC Glucometer 150 Random Glucose 171 H Calcium 9.1 Total Bilirubin 0.5 AST 23 ALT 25 Alkaline Phosphatase 92 Total Protein 6.8 Albumin 3.6 Urine Color Urine Appearance Urine pH Ur Specific [place] Urine Protein Urine Glucose (UA) Urine Ketones Urine Blood Urine Nitrite Urine Bilirubin Urine Urobilinogen Ur Leukocyte Esterase Urine WBC (Auto) Urine RBC (Auto) Urine Casts (Auto) U Epithel Cells (Auto) Urine Bacteria (Auto) RPR Titer Nonreactive 08/12/19 08/12/19 08/13/19 16:54 21:36 06:14 WBC RBC Hgb Hct MCV MCH MCHC RDW Plt Count MPV Sodium Potassium Chloride Carbon Dioxide Anion Gap BUN Creatinine Est GFR (CKD-EPI)AfAm Est GFR (CKD-EPI)NonAf POC Glucometer 229 182 84 Random Glucose Calcium Total Bilirubin AST ALT Alkaline Phosphatase Total Protein Albumin Urine Color Urine Appearance Urine pH Ur Specific [place] Urine Protein Urine Glucose (UA) Urine Ketones Urine Blood Urine Nitrite Urine Bilirubin Urine Urobilinogen Ur Leukocyte Esterase Urine WBC (Auto) Urine RBC (Auto) Urine Casts (Auto) U Epithel Cells (Auto) Urine Bacteria (Auto) RPR Titer 08/13/19 08/13/19 08/13/19 11:57 17:03 21:48 WBC RBC Hgb Hct MCV MCH MCHC RDW Plt Count MPV Sodium Potassium Chloride Carbon Dioxide Anion Gap BUN Creatinine Est GFR (CKD-EPI)AfAm Est GFR (CKD-EPI)NonAf POC Glucometer 131 114 124 Random Glucose Calcium Total Bilirubin AST ALT Alkaline Phosphatase Total Protein Albumin Urine Color Urine Appearance Urine pH Ur Specific [place] Urine Protein Urine Glucose (UA) Urine Ketones Urine Blood Urine Nitrite Urine Bilirubin Urine Urobilinogen Ur Leukocyte Esterase Urine WBC (Auto) Urine RBC (Auto) Urine Casts (Auto) U Epithel Cells (Auto) Urine Bacteria (Auto) RPR Titer 08/14/19 08/14/19 08/14/19 06:38 11:49 16:34 WBC RBC Hgb Hct MCV MCH MCHC RDW Plt Count MPV Sodium Potassium Chloride Carbon Dioxide Anion Gap BUN Creatinine Est GFR (CKD-EPI)AfAm Est GFR (CKD-EPI)NonAf POC Glucometer 113 145 121 Random Glucose Calcium Total Bilirubin AST ALT Alkaline Phosphatase Total Protein Albumin Urine Color Urine Appearance Urine pH Ur Specific [place] Urine Protein Urine Glucose (UA) Urine Ketones Urine Blood Urine Nitrite Urine Bilirubin Urine Urobilinogen Ur Leukocyte Esterase Urine WBC (Auto) Urine RBC (Auto) Urine Casts (Auto) U Epithel Cells (Auto) Urine Bacteria (Auto) RPR Titer 08/14/19 08/15/19 08/15/19 21:11 06:34 16:29 WBC RBC Hgb Hct MCV MCH MCHC RDW Plt Count MPV Sodium Potassium Chloride Carbon Dioxide Anion Gap BUN Creatinine Est GFR (CKD-EPI)AfAm Est GFR (CKD-EPI)NonAf POC Glucometer 184 142 145 Random Glucose Calcium Total Bilirubin AST ALT Alkaline Phosphatase Total Protein Albumin Urine Color Urine Appearance Urine pH Ur Specific [place] Urine Protein Urine Glucose (UA) Urine Ketones Urine Blood Urine Nitrite Urine Bilirubin Urine Urobilinogen Ur Leukocyte Esterase Urine WBC (Auto) Urine RBC (Auto) Urine Casts (Auto) U Epithel Cells (Auto) Urine Bacteria (Auto) RPR Titer 08/16/19 08/18/19 08/19/19 06:18 06:14 06:46 WBC RBC Hgb Hct MCV MCH MCHC RDW Plt Count MPV Sodium Potassium Chloride Carbon Dioxide Anion Gap BUN Creatinine Est GFR (CKD-EPI)AfAm Est GFR (CKD-EPI)NonAf POC Glucometer 112 96 127 Random Glucose Calcium Total Bilirubin AST ALT Alkaline Phosphatase Total Protein Albumin Urine Color Urine Appearance Urine pH Ur Specific [place] Urine Protein Urine Glucose (UA) Urine Ketones Urine Blood Urine Nitrite Urine Bilirubin Urine Urobilinogen Ur Leukocyte Esterase Urine WBC (Auto) Urine RBC (Auto) Urine Casts (Auto) U Epithel Cells (Auto) Urine Bacteria (Auto) RPR Titer 08/20/19 08/21/19 08/22/19 06:44 06:34 06:05 WBC RBC Hgb Hct MCV MCH MCHC RDW Plt Count MPV Sodium Potassium Chloride Carbon Dioxide Anion Gap BUN Creatinine Est GFR (CKD-EPI)AfAm Est GFR (CKD-EPI)NonAf POC Glucometer 121 126 98 Random Glucose Calcium Total Bilirubin AST ALT Alkaline Phosphatase Total Protein Albumin Urine Color Urine Appearance Urine pH Ur Specific [place] Urine Protein Urine Glucose (UA) Urine Ketones Urine Blood Urine Nitrite Urine Bilirubin Urine Urobilinogen Ur Leukocyte Esterase Urine WBC (Auto) Urine RBC (Auto) Urine Casts (Auto) U Epithel Cells (Auto) Urine Bacteria (Auto) RPR Titer 08/23/19 08/24/19 08/25/19 06:34 06:29 06:20 WBC RBC Hgb Hct MCV MCH MCHC RDW Plt Count MPV Sodium Potassium Chloride Carbon Dioxide Anion Gap BUN Creatinine Est GFR (CKD-EPI)AfAm Est GFR (CKD-EPI)NonAf POC Glucometer 114 102 110 Random Glucose Calcium Total Bilirubin AST ALT Alkaline Phosphatase Total Protein Albumin Urine Color Urine Appearance Urine pH Ur Specific [place] Urine Protein Urine Glucose (UA) Urine Ketones Urine Blood Urine Nitrite Urine Bilirubin Urine Urobilinogen Ur Leukocyte Esterase Urine WBC (Auto) Urine RBC (Auto) Urine Casts (Auto) U Epithel Cells (Auto) Urine Bacteria (Auto) RPR Titer 08/26/19 08/27/19 08/28/19 06:41 06:33 07:19 WBC RBC Hgb Hct MCV MCH MCHC RDW Plt Count MPV Sodium Potassium Chloride Carbon Dioxide Anion Gap BUN Creatinine Est GFR (CKD-EPI)AfAm Est GFR (CKD-EPI)NonAf POC Glucometer 106 108 115 Random Glucose Calcium Total Bilirubin AST ALT Alkaline Phosphatase Total Protein Albumin Urine Color Urine Appearance Urine pH Ur Specific [place] Urine Protein Urine Glucose (UA) Urine Ketones Urine Blood Urine Nitrite Urine Bilirubin Urine Urobilinogen Ur Leukocyte Esterase Urine WBC (Auto) Urine RBC (Auto) Urine Casts (Auto) U Epithel Cells (Auto) Urine Bacteria (Auto) RPR Titer A/P: ETOH/Opiod dependence DM Patient stable at this time for discharge in am Suboxone 8mg/2mg sl bid x 2 weeks sent to preferred pharmacy metformin sent as ordered to prescribed pharmacy Patient encouraged to follow up with PCP as recommended
[2019-08-28] MEDS: MELATONIN 5 MG TABLETS PO PRN (21:22)
[2019-08-28] MEDS: hydrOXYzine PAMOATE 50 MG CAPSULE (FP) PO PRN (21:22)
[2019-08-28] MEDS: THIAMINE HCL 100 MG TABLET (FP) PO SCH (21:22)
[2019-08-28] MEDS ORDERED: PT OWN MED DRAWER 7, Y5N ONE (21:24)
[2019-08-28] MEDS: SIMETHICONE 80 MG TAB.CHEW (FP) PO PRN (21:24)
[2019-08-29 06:35] VITALS: BP 124/63; PULSE 68; TEMP 97.9
[2019-08-29] MEDS: BUPRENORPHINE/NALOXONE 8 MG/2 MG FILM PACKET SL SCH (06:49)
[2019-08-29] MEDS: metFORMIN HCL 500 MG TABLET (FP) PO SCH (06:49)
[2019-08-29] MEDS: INSULIN SLIDING SCALE (NOVOLOG) 1 VIAL SQ SCH (07:09)
== END 2019-08-29 07:00 | disposition home or self-care (01) | DRG 895 ==
LOC: YASAS 14:34 → Y6N 21:16 → Y3W 21:22
PROVIDERS: ADMIT Allergy & Immunology; ATTEND Allergy & Immunology
PROC: HZ40ZZZ Group Counseling for Substance Abuse Treatment, Cognitive (ICD-10-PCS; principal; 2019-08-11)
DX: F10.20 Alcohol dependence, uncomplicated (principal); F11.20 Opioid dependence, uncomplicated; F14.20 Cocaine dependence, uncomplicated; F17.210 Nicotine dependence, cigarettes, uncomplicated; F32.9 Major depressive disorder, single episode, unspecified; E11.9 Type 2 diabetes mellitus without complications; Z79.84 Long term (current) use of oral hypoglycemic drugs; B18.2 Chronic viral hepatitis C; K59.00 Constipation, unspecified; M19.90 Unspecified osteoarthritis, unspecified site; R12 Heartburn; Z97.0 Presence of artificial eye; Z85.46 Personal history of malignant neoplasm of prostate; Z98.890 Other specified postprocedural states
CPT/HCPCS: 36415; 80053; 81003; 82962; 85027; 86593; 93005; 93010

== ENCOUNTER 2019-11-08 14:23 | Inpatient (IN) | payer OTHER ==
[2019-11-08 21:25] VITALS: BMI 26.6
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
[2019-11-09] MEDS ORDERED: MAGNESIUM HYDROX 2400MG/30ML ORAL SUSPENSION 30 ML CUP PO PRN (00:17)
[2019-11-09] MEDS ORDERED: IBUPROFEN 400 MG TABLET (FP) PO PRN (00:17)
[2019-11-09] MEDS ORDERED: cloNIDine HCL 0.1 MG TABLET PO PRN (00:17)
[2019-11-09] MEDS ORDERED: MENTHOL/PHENOL 1 EACH UD MM PRN (00:17)
[2019-11-09] MEDS ORDERED: METHOCARBAMOL 500 MG TABLET PO PRN (00:17)
[2019-11-09] MEDS ORDERED: MAG HYDROX/AL HYDROX/SIMETH 30 ML UNIT-DOSE CUP PO PRN (00:17)
[2019-11-09] MEDS ORDERED: ACETAMINOPHEN 325 MG TABLET (FP) PO PRN ×2 (00:17)
[2019-11-09] MEDS ORDERED: NICOTINE POLACRILEX 2 MG GUM BUC PRN (00:17)
[2019-11-09] MEDS ORDERED: hydrOXYzine PAMOATE 25 MG CAPSULE (FP) PO PRN (00:17)
[2019-11-09] MEDS ORDERED: BISMUTH SUBSALICYLATE 524 MG/30 ML UD PO PRN (00:17)
[2019-11-09] MEDS ORDERED: MELATONIN 5 MG TABLETS PO PRN (00:17)
[2019-11-09] MEDS ORDERED: MAGNESIUM CITRATE 300 ML BOTTLE PO PRN (00:17)
[2019-11-09] MEDS ORDERED: METHADONE HCL 10 MG TABLET (FOR DETOX USE ONLY) PO ONE (00:17)
[2019-11-09] MEDS ORDERED: metFORMIN HCL 500 MG TABLET (FP) PO SCH ×2 (10:00→17:22)
--- NOTE | 2019-11-09 10:26 | PN ---
S CIWA - CIWA Score Nausea/Vomitin Muscle Tremors: 2 Anxiety: 2 Agitation: 0-Normal Activity Paroxysmal Sweats: 1-Minimal Palms Moist Orientation: 0-Oriented Tacttile Disturbances: 1-Very Mild Itch/Numbness Auditory Disturbances: 0-None Visual Disturbances: 0-None Headache: 2-Mild CIWA-Ar Total Score: 10 BHS COWS - Scale Resting Pulse: 0= [place] 80 or Below Sweatin= Chills/Flushing Restless Observation: 1= Difficult to Sit Still Pupil Size: 1= Pupils >than Normal Bone or Joint Aches: 1= Mild Discomfort Runny Nose/ Eye Tearin= Runny Nose/Eyes GI Upset > 30mins: 2= Nausea/Diarrhea Tremor Observation of Outstretched Hands: 2= Slight Tremor Visible Yawning Observation: 1= 1-2x During Session Anxiety or Irritability: 2=Irritable/Anxious Goose Flesh Skin: 0=Smooth Skin COWS Score: 13 BHS Progress Note (SOAP) Subjective: alert,irritable,anxious,interrupted sleep,tremor,pain in the body and back Objective: 11/09/19 10:25 Vital Signs Temperature 98.2 F 11/09/19 10:00 Pulse Rate 75 11/09/19 10:00 Respiratory Rate 19 11/09/19 10:00 Blood Pressure 105/63 11/09/19 10:00 O2 Sat by Pulse Oximetry (%) 11/09/19 10:25 bgm 121 Assessment: 11/09/19 10:25 withdrawal symptom Plan: continue detox methadone and librium regimen,bgm monitoring
[2019-11-09] MEDS: PRENATAL VITAMINS W/ FOLIC ACID TABLET (FP) PO SCH (11:15)
[2019-11-09] MEDS: NICOTINE 21 MG/24 HOURS TOPICAL PATCH TD SCH (11:15)
[2019-11-09] MEDS: chlordiazePOXIDE HCL 25 MG CAPSULE PO PRN ×2 (14:46→19:39)
[2019-11-09] MEDS: metFORMIN HCL 500 MG TABLET (FP) PO SCH (18:05)
[2019-11-09] MEDS: THIAMINE HCL 100 MG TABLET (FP) PO SCH (22:31)
[2019-11-09] MEDS: chlordiazePOXIDE HCL 25 MG CAPSULE PO SCH (22:31)
[2019-11-10] MEDS: chlordiazePOXIDE HCL 25 MG CAPSULE PO PRN ×2 (03:00→15:18)
[2019-11-10] MEDS: chlordiazePOXIDE HCL 25 MG CAPSULE PO SCH ×4 (05:22→22:18)
[2019-11-10] MEDS: metFORMIN HCL 500 MG TABLET (FP) PO SCH ×2 (06:39→17:35)
[2019-11-10] MEDS ORDERED: METHADONE HCL 5 MG TABLET (FOR DETOX USE ONLY) ONE (09:27)
[2019-11-10] MEDS ORDERED: METHADONE HCL 10 MG TABLET (FOR DETOX USE ONLY) ONE (09:27)
[2019-11-10] MEDS ORDERED: METHADONE (DETOX) 20 MG, METHADONE (DETOX) 5 MG PO ONE (10:00)
--- NOTE | 2019-11-10 10:29 | PN ---
[facility] CIWA - CIWA Score Nausea/Vomitin-Mild Nausea/No Vomiting Muscle Tremors: 2 Anxiety: 2 Agitation: 2 Paroxysmal Sweats: No Perspiration Orientation: 0-Oriented Tacttile Disturbances: 0-None Auditory Disturbances: 0-None Visual Disturbances: 0-None Headache: 1-Very Mild CIWA-Ar Total Score: 8 BHS COWS - Scale Resting Pulse: 0= [place] 80 or Below Sweatin= No chills or Flushing Restless Observation: 1= Difficult to Sit Still Pupil Size: 1= Pupils >than Normal Bone or Joint Aches: 1= Mild Discomfort Runny Nose/ Eye Tearin= Nasal Congestion GI Upset > 30mins: 2= Nausea/Diarrhea Tremor Observation of Outstretched Hands: 1= Tremor [place], Not Seen Yawning Observation: 1= 1-2x During Session Anxiety or Irritability: 2=Irritable/Anxious Goose Flesh Skin: 0=Smooth Skin COWS Score: 10 S Progress Note (SOAP) Subjective: alert,irritable,anxious,interrupted sleep,tremor,pain in the body and back Objective: 11/10/19 10:27 Vital Signs Temperature 98.2 F 11/10/19 08:51 Pulse Rate 80 11/10/19 08:51 Respiratory Rate 19 11/10/19 08:51 Blood Pressure 112/63 11/10/19 08:51 O2 Sat by Pulse Oximetry (%) 11/10/19 10:27 Laboratory Last Values POC Glucometer 163 UNITS (80-120) 11/10/19 05:23 11/10/19 10:28 labs pending Assessment: 11/10/19 10:28 withdrawal symptom Plan: continue detox methadone and librium regimen,admission ekg today
[2019-11-10 10:45] LABS: HEMOGLOBIN 15.1 GM/dL (11.7-16.9); MCH 30.8 pg (25.7-33.7); MCHC 33.6 g/dl (32.0-35.9); MEAN CELL VOLUME 91.8 fl (80-96); MEAN PLT VOLUME 10.2 fl (7.5-11.1); PLATELET COUNT 127 K/MM3 (134-434); RBC 4.91 M/mm3 (4.00-5.60); RDW 13.2 % (11.9-15.9); WHITE BLOOD COUNT 4.4 K/mm3 (4.0-10.0)
[2019-11-10 10:50] LABS: ALBUMIN 3.1 g/dl (3.4-5.0); BILIRUBIN,TOTAL 0.4 mg/dL (0.2-1); BLOOD UREA NITROGEN 6.2 mg/dL (7-18); CALCIUM 8.7 mg/dL (8.5-10.1); CREATININE 0.8 mg/dL (0.55-1.3); POTASSIUM 3.9 mmol/L (3.5-5.1); TOT PROT 6.4 g/dl (6.4-8.2)
[2019-11-10] MEDS: NICOTINE 21 MG/24 HOURS TOPICAL PATCH TD SCH (11:00)
[2019-11-10] MEDS: PRENATAL VITAMINS W/ FOLIC ACID TABLET (FP) PO SCH (11:01)
[2019-11-10] MEDS: THIAMINE HCL 100 MG TABLET (FP) PO SCH (22:18)
[2019-11-11] MEDS: chlordiazePOXIDE HCL 25 MG CAPSULE PO SCH ×3 (05:27→17:11)
[2019-11-11] MEDS: metFORMIN HCL 500 MG TABLET (FP) PO SCH ×2 (06:07→16:48)
[2019-11-11] MEDS ORDERED: METHADONE HCL 10 MG TABLET (FOR DETOX USE ONLY) PO ONE (10:00)
--- NOTE | 2019-11-11 10:58 | PN ---
[facility] CIWA - CIWA Score Nausea/Vomitin-Mild Nausea/No Vomiting Muscle Tremors: 2 Anxiety: 1-Mildly Anxious Agitation: 1-Slight > Activity Paroxysmal Sweats: 1-Minimal Palms Moist Orientation: 0-Oriented Tacttile Disturbances: 1-Very Mild Itch/Numbness Auditory Disturbances: 0-None Visual Disturbances: 0-None Headache: 1-Very Mild CIWA-Ar Total Score: 8 BHS COWS - Scale Resting Pulse: 0= MD 80 or Below Sweatin= Chills/Flushing Restless Observation: 1= Difficult to Sit Still Pupil Size: 0= Normal to Room Light Bone or Joint Aches: 1= Mild Discomfort Runny Nose/ Eye Tearin= Nasal Congestion GI Upset > 30mins: 1= Stomach Cramp Tremor Observation of Outstretched Hands: 1= Tremor [place], Not Seen Yawning Observation: 0= None Anxiety or Irritability: 1=Feels Anxious/Irritable Goose Flesh Skin: 3=Piloerection COWS Score: 10 S Progress Note (SOAP) Subjective: Interrupted sleep, abdominal discomfort and generalized body aches Objective: 11/11/19 10:56 Withdrawal sx Vital Signs - 8 hr 11/11/19 11/11/19 03:36 06:24 Temperature 97.5 F L Pulse Rate 75 Respiratory 18 16 Rate Blood Pressure 116/65 VSS Laboratory Last Values WBC 4.4 K/mm3 (4.0-10.0) 11/10/19 08:00 RBC 4.91 M/mm3 (4.00-5.60) 11/10/19 08:00 Hgb 15.1 GM/dL (11.7-16.9) 11/10/19 08:00 Hct 45.0 % (35.4-49) 11/10/19 08:00 MCV 91.8 fl (80-96) 11/10/19 08:00 MCH 30.8 pg (25.7-33.7) 11/10/19 08:00 MCHC 33.6 g/dl (32.0-35.9) 11/10/19 08:00 RDW 13.2 % (11.9-15.9) 11/10/19 08:00 Plt Count 127 K/MM3 (134-434) L D 11/10/19 08:00 MPV 10.2 fl (7.5-11.1) 11/10/19 08:00 Sodium 137 mmol/L (136-145) 11/10/19 08:00 Potassium 3.9 mmol/L (3.5-5.1) 11/10/19 08:00 Chloride 105 mmol/L (98-107) 11/10/19 08:00 Carbon Dioxide 28 mmol/L (21-32) 11/10/19 08:00 Anion Gap 3 MMOL/L (8-16) L 11/10/19 08:00 BUN 6.2 mg/dL (7-18) L 11/10/19 08:00 Creatinine 0.8 mg/dL (0.55-1.3) 11/10/19 08:00 Est GFR (CKD-EPI)AfAm 114.93 11/10/19 08:00 Est GFR (CKD-EPI)NonAf 99.16 11/10/19 08:00 POC Glucometer 116 UNITS (80-120) 11/11/19 05:25 Random Glucose 120 mg/dL (74-106) H 11/10/19 08:00 Calcium 8.7 mg/dL (8.5-10.1) 11/10/19 08:00 Total Bilirubin 0.4 mg/dL (0.2-1) 11/10/19 08:00 AST 14 U/L (15-37) L 11/10/19 08:00 ALT 16 U/L (13-61) 11/10/19 08:00 Alkaline Phosphatase 104 U/L (45-117) 11/10/19 08:00 Total Protein 6.4 g/dl (6.4-8.2) 11/10/19 08:00 Albumin 3.1 g/dl (3.4-5.0) L 11/10/19 08:00 Labs noted, no panic values Assessment: 11/11/19 10:57 Withdrawal sx Plan: Continue detox
[2019-11-11] MEDS: PRENATAL VITAMINS W/ FOLIC ACID TABLET (FP) PO SCH (11:11)
[2019-11-11] MEDS: NICOTINE 21 MG/24 HOURS TOPICAL PATCH TD SCH (11:12)
[2019-11-11] MEDS: chlordiazePOXIDE HCL 25 MG CAPSULE PO PRN (11:26)
--- NOTE | 2019-11-11 14:36 | EKG ---
Test Reason : Blood Pressure : / mmHG Vent. Rate : 071 BPM Atrial Rate : 071 BPM P-R Int : 162 ms QRS Dur : 076 ms QT Int : 376 ms P-R-T Axes : 067 048 049 degrees QTc Int : 408 ms NORMAL SINUS RHYTHM SEPTAL INFARCT (CITED ON OR BEFORE 11-AUG-2019) ABNORMAL ECG Confirmed by MD RAY, ADAMS ([id number]) on 11/11/2019 2:36:26 PM Referred By: Confirmed By:ADAMS BELL MD
[2019-11-11 18:01] VITALS: BP 119/67; PULSE 74; TEMP 97.7
--- NOTE | 2019-11-11 18:14 | DS ---
[facility] Detox Discharge Summary Admission Date: 11/09/19 Discharge Date: 11/11/19 - History Present History: Alcohol Dependence, Cannabis Dependence, Cocaine Dependence, Opioid Dependence Pertinent Past History: DM, OA, Hep C - treated, prostate Ca - Physical Exam Results Vital Signs: Vital Signs Temperature 97.7 F 11/11/19 16:27 Pulse Rate 74 11/11/19 16:27 Respiratory Rate 18 11/11/19 16:27 Blood Pressure 119/67 11/11/19 16:27 O2 Sat by Pulse Oximetry (%) Pertinent Admission Physical Exam Findings: withdrawal sx Laboratory Last Values WBC 4.4 K/mm3 (4.0-10.0) 11/10/19 08:00 RBC 4.91 M/mm3 (4.00-5.60) 11/10/19 08:00 Hgb 15.1 GM/dL (11.7-16.9) 11/10/19 08:00 Hct 45.0 % (35.4-49) 11/10/19 08:00 MCV 91.8 fl (80-96) 11/10/19 08:00 MCH 30.8 pg (25.7-33.7) 11/10/19 08:00 MCHC 33.6 g/dl (32.0-35.9) 11/10/19 08:00 RDW 13.2 % (11.9-15.9) 11/10/19 08:00 Plt Count 127 K/MM3 (134-434) L D 11/10/19 08:00 MPV 10.2 fl (7.5-11.1) 11/10/19 08:00 Sodium 137 mmol/L (136-145) 11/10/19 08:00 Potassium 3.9 mmol/L (3.5-5.1) 11/10/19 08:00 Chloride 105 mmol/L (98-107) 11/10/19 08:00 Carbon Dioxide 28 mmol/L (21-32) 11/10/19 08:00 Anion Gap 3 MMOL/L (8-16) L 11/10/19 08:00 BUN 6.2 mg/dL (7-18) L 11/10/19 08:00 Creatinine 0.8 mg/dL (0.55-1.3) 11/10/19 08:00 Est GFR (CKD-EPI)AfAm 114.93 11/10/19 08:00 Est GFR (CKD-EPI)NonAf 99.16 11/10/19 08:00 POC Glucometer 175 UNITS (80-120) 11/11/19 16:41 Random Glucose 120 mg/dL (74-106) H 11/10/19 08:00 Calcium 8.7 mg/dL (8.5-10.1) 11/10/19 08:00 Total Bilirubin 0.4 mg/dL (0.2-1) 11/10/19 08:00 AST 14 U/L (15-37) L 11/10/19 08:00 ALT 16 U/L (13-61) 11/10/19 08:00 Alkaline Phosphatase 104 U/L (45-117) 11/10/19 08:00 Total Protein 6.4 g/dl (6.4-8.2) 11/10/19 08:00 Albumin 3.1 g/dl (3.4-5.0) L 11/10/19 08:00 RPR Titer Nonreactive (NONREACTIVE) 11/10/19 08:00 - Medication Discharge Medications: Ambulatory Orders Metformin HCl [Glucophage] 500 mg PO BID #60 tablet 08/28/19 - Diagnosis (1) Hepatitis C carrier Current Visit: Yes Status: Chronic (2) Alcohol dependence with withdrawal, uncomplicated Current Visit: Yes Status: Acute (3) Opioid dependence with withdrawal Current Visit: Yes Status: Acute (4) Cocaine dependence Current Visit: Yes Status: Acute (5) DM Diabetes mellitus type 2 Current Visit: Yes Status: Chronic (6) Nicotine dependence, unspecified, uncomplicated Current Visit: Yes Status: Acute Qualifiers: Nicotine product type: cigarettes Qualified Code(s): F17.210 - Nicotine dependence, cigarettes, uncomplicated (7) Osteoarthritis Current Visit: Yes Status: Chronic Qualifiers: Osteoarthritis location: unspecified site Osteoarthritis type: unspecified Qualified Code(s): M19.90 - Unspecified osteoarthritis, unspecified site - AMA Did Patient Leave Against Medical Advice: Yes
[2019-11-12] MEDS ORDERED: chlordiazePOXIDE HCL 10 MG CAPSULE PO PRN
[2019-11-12] MEDS ORDERED: chlordiazePOXIDE HCL 10 MG CAPSULE PO SCH (05:00)
[2019-11-12] MEDS ORDERED: METHADONE (DETOX) 10 MG, METHADONE (DETOX) 5 MG PO ONE (10:00)
[2019-11-13] MEDS ORDERED: chlordiazePOXIDE HCL 10 MG CAPSULE PO SCH (05:00)
[2019-11-13] MEDS ORDERED: METHADONE HCL 10 MG TABLET (FOR DETOX USE ONLY) PO ONE (10:00)
[2019-11-14] MEDS ORDERED: chlordiazePOXIDE HCL 10 MG CAPSULE PO ONE (05:00)
[2019-11-14] MEDS ORDERED: METHADONE HCL 5 MG TABLET (FOR DETOX USE ONLY) PO ONE (06:00)
== END 2019-11-11 17:51 | disposition left against medical advice (07) | DRG 894 ==
LOC: YASAS 14:23 → Y6N 11-09 01:14
PROVIDERS: ADMIT Allergy & Immunology; ATTEND Allergy & Immunology
PROC: HZ2ZZZZ Detoxification Services for Substance Abuse Treatment (ICD-10-PCS; principal; 2019-11-09)
DX: F11.23 Opioid dependence with withdrawal (principal); F14.20 Cocaine dependence, uncomplicated; F10.230 Alcohol dependence with withdrawal, uncomplicated; F17.210 Nicotine dependence, cigarettes, uncomplicated; E11.9 Type 2 diabetes mellitus without complications; B18.2 Chronic viral hepatitis C; M19.90 Unspecified osteoarthritis, unspecified site; Z85.46 Personal history of malignant neoplasm of prostate; Z97.0 Presence of artificial eye
CPT/HCPCS: 36415; 80053; 82962; 85027; 86593; 90853; 93005; 93010; J0735